=== PATIENT | male | born 1975 | race Caucasian/White ===

== ENCOUNTER 2022-04-17 14:39 | Emergency (ER) | payer OTHER ==
[~2022-04-17] VITALS: Ht 167.6 cm; Wt 145.2 kg
[2022-04-17] MEDS ORDERED: PAROXETINE7.5 MG (18:46)
[2022-04-17] MEDS ORDERED: METHOTREXATE2.5 MG PO (18:46)
[2022-04-17] MEDS ORDERED: METFORMIN HCL1000 M1 (18:47)
[2022-04-17] MEDS ORDERED: LISINOPRIL2.5 MG (18:47)
== END 2022-04-17 18:56 | disposition home or self-care (01) ==
LOC: ED 14:39
DX: R10.9 Unspecified abdominal pain (principal); R19.7 Diarrhea, unspecified; R23.1 Pallor; I95.9 Hypotension, unspecified; I10 Essential (primary) hypertension; E11.9 Type 2 diabetes mellitus without complications; Z88.0 Allergy status to penicillin; Z79.899 Other long term (current) drug therapy
CPT/HCPCS: 36415; 74177; 80053; 81001; 83690; 85025; J7030; Q9967

== ENCOUNTER 2023-01-21 08:29 | Emergency (ER) | payer OTHER ==
[~2023-01-21] VITALS: Ht 167.6 cm; Wt 136.1 kg
[~2023-01-21 08:29] MED LIST: LISINOPRIL2.5 MG; METFORMIN HCL1000 M1; METHOTREXATE2.5 MG PO; PAROXETINE7.5 MG
[2023-01-21 13:05] VITALS: BP 122/82
== END 2023-01-21 13:07 | disposition home or self-care (01) ==
LOC: ED 08:29
DX: S01.81XA Laceration without foreign body of other part of head, initial encounter (principal); S16.1XXA Strain of muscle, fascia and tendon at neck level, initial encounter; S00.83XA Contusion of other part of head, initial encounter; S80.01XA Contusion of right knee, initial encounter; S39.012A Strain of muscle, fascia and tendon of lower back, initial encounter; W01.198A Fall on same level from slipping, tripping and stumbling with subsequent striking against other object, initial encounter; I10 Essential (primary) hypertension; E11.9 Type 2 diabetes mellitus without complications; Z88.0 Allergy status to penicillin; Z88.8 Allergy status to other drugs, medicaments and biological substances; Z79.84 Long term (current) use of oral hypoglycemic drugs; Z79.899 Other long term (current) drug therapy
CPT/HCPCS: 12011; 70486; 72100; 72125; 73030; 73560; 99284-25; A9270

== ENCOUNTER 2023-07-24 09:39 | Day surgery (SDC) | payer OTHER ==
[~2023-07-24] VITALS: Ht 190.5 cm; Wt 136.1 kg
[~2023-07-24 09:39] MED LIST changes: +BENADRYL25 MG PO; +CLOBETASOL 0.0560 GM TOP; +HYDROCORTISONE30 G2 TOP; +LIPITOR20 MG PO; -LISINOPRIL2.5 MG; +LISINOPRIL2.5 MG PO; +RENFLEXIS100 MG IV
[2023-07-24 10:07] VITALS: BP 132/80
[2023-07-24] MEDS ORDERED: ZYRTEC10 M3 (10:11)
[2023-07-24] MEDS ORDERED: FENOFIBRATE145 MG PO (10:12)
[2023-07-24] MEDS ORDERED: VITAMIN D250 MC1 PO (10:12)
--- NOTE | 2023-07-24 12:31 | NUR ---
07/24/23 1231 Amarilis Allen PT TO PACU ALERT AND AWAKE DENIES PAIN AND NAUSEA.
[2023-07-24 12:47] VITALS: BP 117/55
--- NOTE | 2023-07-24 14:14 | OR ---
[facility] [place] [facility] [address] [place], [place] [address] Signed DATE OF OPERATION: 07/24/2023 SURGEON: Di Murphy MD PREOPERATIVE DIAGNOSES: 1. History of colonic polyps 2015 (tubular adenomas x3 [place], [place]). 2. Episodic rectal bleeding. POSTOPERATIVE DIAGNOSIS: Three hyperplastic polyps of sigmoid, excised. No evidence of hemorrhoids. PROCEDURE: Total colonoscopy to the cecum with cold morcellation polypectomy x3. ANESTHESIA: Intravenous sedation; fentanyl 150 mcg and Versed 7 mg. INDICATION: This 47-year-old white man is a prisoner at [facility] and a patient of DOMINGA Solo. He underwent colonoscopy in [address] Olmedo in [place], [place] at which 3 tubular adenomas were resected. He currently has episodic rectal bleeding. On the basis of interval of time since colonoscopy and prior history of polyps and symptoms of rectal bleeding, colonoscopy has been recommended. The risk of bleeding, infection, and perforation were reviewed with him. He understands and wished to proceed. FINDINGS: The prep was adequate with irrigation. Complete and full intubation of the cecum was accomplished. There were three tiny hyperplastic polyps of the sigmoid, all of them excised completely. The remaining colon was normal. There were no hemorrhoids. DESCRIPTION OF PROCEDURE: The patient was brought to the endoscopy suite and placed in the lateral decubitus position; given intravenous sedation to the point of slurred speech and nystagmus. Digital rectal examination was normal. Full cardiopulmonary monitoring was maintained. The Olympus video colonoscope was passed in the rectum and manipulated throughout the colon ultimately intubating the cecum itself. The ileocecal valve and appendiceal orifice were normal. The scope was withdrawn from that point and irrigation was undertaken as necessary for good mucosal visualization. In the proximal sigmoid, there were three hyperplastic appearing polyps, they were excised with cold morcellation Electronically Signed By: DI MURPHY MD 07/24/23 1414 PATIENT NAME: BHARATH MARADIAGA OPERATIVE REPORT DATE OF : 73 REPORT #: [id number] PHYSICIAN: DI MURPHY MD PCP: CARLOS MA REPORT IS CONFIDENTIAL AND NOT TO BE RELEASED WITHOUT AUTHORIZATION [facility] [address] [place], [place] [address] Signed technique, they were rather small indeed. Further withdrawal allowed for retroflexed view of the rectum, which was normal. Scope was removed and the patient was taken to the recovery room in good condition. CONCLUDING DIAGNOSES: 1. No etiology noted. 2. Rectal bleeding. 3. Three hyperplastic polyps of sigmoid, resected. PLAN: Recommend repeat colonoscopy in 5 to 7 years based on history. He will return to the ongoing care of Torie Ma. MD HEATHER Tariq/LUZ ELENA /[id number] cc: DOMINGA Kurtz Copies: CARLOS MA ~ Electronically Signed By: DI MURPHY MD 07/24/23 1414 PATIENT NAME: BHARATH MARADIAGA OPERATIVE REPORT DATE OF : 73 REPORT #: [id number] PHYSICIAN: DI MURPHY MD PCP: CARLOS MA REPORT IS CONFIDENTIAL AND NOT TO BE RELEASED WITHOUT AUTHORIZATION
--- NOTE | 2023-07-27 15:51 | PATH ---
[facility] [address] [facility] [place] [address] Signed SPECIMEN(S): A SIGMOID POLYP SPECIMEN SOURCE: A. SIGMOID POLYP CLINICAL HISTORY: Rectal bleeding. Hx of polyps. FINAL PATHOLOGIC DIAGNOSIS: Sigmoid polyp: - Hyperplastic polyp (multiple fragments). JVR:omid MICROSCOPIC EXAMINATION: Histologic sections of all submitted blocks are examined by light microscopy. These findings, together with the gross examination, support the pathologic diagnosis. GROSS DESCRIPTION: The specimen, labeled and designated "Prachi, sigmoid colon polyp," is received in formalin and consists of five reynoso soft tissue fragments, ranging from 0.1-0.2 cm. Entirely submitted in (A1). JS (under the direct supervision of a pathologist) The Gross Description was prepared using a voice recognition system. The report was reviewed for accuracy; however, sound-alike word errors, addition and/or deletions may occur. If there is any question about this report, please contact Client Services. PERFORMING LABORATORY: Technical component was performed by [facility], [address] [place] [id number] (CLIA# [id number]). Professional interpretation was performed by [facility], [address] [place] [id number] (CLIA#: [id number]). Diagnostician: Wilfredo Manzanares MD Pathologist Electronically Signed 07/27/2023 Copies: PATIENT NAME: BHARATH MARADIAGA PATHOLOGY DATE OF : 73 REPORT #: [id number] PHYSICIAN: YAEL PATHOLOGY PCP: CARLOS MA REPORT IS CONFIDENTIAL AND NOT TO BE RELEASED WITHOUT AUTHORIZATION [address] [address] Signed ~ PATIENT NAME: BHARATH MARADIAGA PATHOLOGY DATE OF : 73 REPORT #: [id number] PHYSICIAN: YAEL BURTON PCP: CARLOS MA REPORT IS CONFIDENTIAL AND NOT TO BE RELEASED WITHOUT AUTHORIZATION
== END 2023-07-24 12:55 | disposition home or self-care (01) ==
LOC: OPS 09:39 → DS 09:39 → OPS 11:00 → DS 11:35 → OPS 12:55 → DS 13:00
PROVIDERS: ATTEND Surgery
PROC: 0DBN8ZX Excision of Sigmoid Colon, Via Natural or Artificial Opening Endoscopic, Diagnostic (ICD-10-PCS; principal; 2023-07-24 11:00)
DX: Z12.11 Encounter for screening for malignant neoplasm of colon (principal); K63.5 Polyp of colon; I10 Essential (primary) hypertension; L40.9 Psoriasis, unspecified; E78.00 Pure hypercholesterolemia, unspecified; E66.01 Morbid (severe) obesity due to excess calories
CPT/HCPCS: 99153; G0500; J2250; J3010; J7121

== ENCOUNTER 2024-04-02 14:18 | Emergency (ER) | payer OTHER ==
[~2024-04-02] VITALS: Ht 190.5 cm; Wt 135.3 kg
[~2024-04-02 14:18] MED LIST changes: +FENOFIBRATE145 MG PO; +VITAMIN D250 MC1 PO; +ZYRTEC10 M3
[2024-04-02 14:41] LABS: BASOPHILS 1.1 % (0-2); EOSINOPHILS 3.6 % (0-6); HEMATOCRIT 43.9 % (35.0-50.0); HEMOGLOBIN 15.4 g/dL (12.0-18.0); LYMPHOCYTES 30.9 % (24-44); MCH 31.9 (27-36); MCHC 35.1 g/dl (30-36); MCV 90.9 fl (81-99); MONOCYTES 8.2 % (0-12); NEUTROPHILS 56.2 % (39-80); PLATELET COUNT 168 K/uL (140-440); RBC 4.83 M/ul (4.3-5.7); RDW 13.8 (10.5-15.0)
[2024-04-02 14:57] LABS: ALBUMIN 3.6 g/dL (3.4-5.0); ALBUMIN/GLOBULIN RATIO 0.97 (1.1-2.4); ANION GAP 13.9 (7-21); BILIRUBIN, TOTAL 0.4 ng/dL (0.2-1.0); BUN/CREATININE RATIO 13.04 (6.0-28.6); CALCIUM 8.7 mg/dL (8.5-10.1); CREATININE, SERUM 0.92 mg/dL (0.70-1.30); POTASSIUM 3.9 mmol/L (3.5-5.1); PROTEIN, TOTAL 7.3 g/dL (6.4-8.2)
[2024-04-02] MEDS ORDERED: ondansetron HCL 4 MG/2 ML VIAL IV ONE (15:00)
[2024-04-02] MEDS ORDERED: SODIUM CHLORIDE 0.9% 1,000 ML IV ONE (15:00)
[2024-04-02 16:57] VITALS: BP 123/76
== END 2024-04-02 16:57 | disposition home or self-care (01) ==
LOC: ED 14:18
PROVIDERS: Emergency Medicine
DX: R10.9 Unspecified abdominal pain (principal); I10 Essential (primary) hypertension; E11.9 Type 2 diabetes mellitus without complications; K40.90 Unilateral inguinal hernia, without obstruction or gangrene, not specified as recurrent; Z87.891 Personal history of nicotine dependence; Z88.0 Allergy status to penicillin; Z88.8 Allergy status to other drugs, medicaments and biological substances; Z79.84 Long term (current) use of oral hypoglycemic drugs; Z79.899 Other long term (current) drug therapy
CPT/HCPCS: 36415; 74177; 80053; 83690; 85025; J2405; J7030; Q9967

== ENCOUNTER 2025-03-19 10:22 | Emergency (ER) | payer OTHER ==
[~2025-03-19] VITALS: Ht 190.5 cm; Wt 136.1 kg
[2025-03-19] MEDS ORDERED: TETRACAINE HCL 0.5% 4 ML BTL OS SCH (10:45)
[2025-03-19 11:14] VITALS: BP 154/83
== END 2025-03-19 11:13 | disposition home or self-care (01) ==
LOC: ED 10:22
DX: H11.32 Conjunctival hemorrhage, left eye (principal); I10 Essential (primary) hypertension; E11.9 Type 2 diabetes mellitus without complications; Z88.8 Allergy status to other drugs, medicaments and biological substances; Z79.84 Long term (current) use of oral hypoglycemic drugs; Z79.899 Other long term (current) drug therapy
CPT/HCPCS: 99283